=== PATIENT | female | born 1980 | race Caucasian/White ===

== ENCOUNTER 2022-11-05 08:32 | Emergency (ER) | payer OTHER ==
[~2022-11-05] VITALS: Ht 165.1 cm; Wt 71.7 kg
[2022-11-05] MEDS ORDERED: COZAAR25 MG PO (09:06)
== END 2022-11-05 11:50 | disposition home or self-care (01) ==
LOC: ER 08:32
DX: G44.209 Tension-type headache, unspecified, not intractable (principal); I10 Essential (primary) hypertension